=== PATIENT | female | born 1955 | race American Indian/Alaskan Native ===

== ENCOUNTER 2018-12-21 11:07 | Emergency (ER) | payer MEDICARE ==
[2018-12-21 11:16] VITALS: BP 167/71
--- NOTE | 2018-12-21 11:19 | Event Note ---
ED Screening Note Date of service: 12/21/18 Time: 11:15 ED Screening Note: 63 y/o female comes in for right leg pain and swelling times 1 week. PMH WPW, Cholestrol, hypothyroidisum, HTN and acid refluPCP Dr. Anita Locke [phone]. This initial assessment/diagnostic orders/clinical plan/treatment(s) is/are subject to change based on patients health status, clinical progression and re- assessment by fellow clinical providers in the ED. Further treatment and workup at subsequent clinical providers discretion. Patient/guardian urged not to elope from the ED as their condition may be serious if not clinically assessed and managed. Initial orders include:
[2018-12-21] MEDS ORDERED: TORADOL IM ONE (11:40)
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
--- NOTE | 2018-12-21 12:43 | XRay Report ---
HISTORY: Right knee pain swelling COMPARISON: None. TECHNIQUE: 3 views FINDINGS: Bones: No fracture or dislocation. Joint spaces: Mild narrowing of the medial component femoral tibial articulation Soft tissues: No significant abnormality. Additional findings: None. IMPRESSION: 1. No acute abnormality. Signer Name: Justin Mcgregor MD Signed: 12/21/2018 12:38 PM Workstation Name: [id number]
== END 2018-12-21 13:22 | disposition home or self-care (01) ==
LOC: EEVIPCON 11:07 → ED 11:07
DX: M17.11 Unilateral primary osteoarthritis, right knee (principal); K21.9 Gastro-esophageal reflux disease without esophagitis; I10 Essential (primary) hypertension; E03.9 Hypothyroidism, unspecified; E78.00 Pure hypercholesterolemia, unspecified; Z98.890 Other specified postprocedural states; Z88.0 Allergy status to penicillin; Z79.899 Other long term (current) drug therapy; Z79.1 Long term (current) use of non-steroidal anti-inflammatories (NSAID)
CPT/HCPCS: 73562; 96372; 99283; J1885